=== PATIENT | female | born 1995 | race Caucasian/White ===

== ENCOUNTER 2020-01-05 09:31 | Inpatient (IN) ==
[2020-01-05] MEDS ORDERED: OXYTOCIN 30 UNITS/500 ML BAG IV PRN ×3 (13:35→22:25)
[2020-01-05 14:14] LABS: Hematocrit (blood only) 33.7 % (37-47); Hemoglobin 11.2 g/dL (12.0-16.0); Mean Corpuscular Hemoglobin 28.8 pg (25-34); Mean Corpuscular Volume 86.6 fL (80-100); RDW Coefficient of Variation 13.8 % (11.5-14.5); RDW Standard Deviation 43.6 fL (36.4-46.3); Red Blood Count 3.89 M/uL (4.2-5.4)
[2020-01-05 14:22] LABS: Mean Corpuscular Hgb Conc 33.2 g/dL (32-36); Platelet Count 100 K/uL (130-400)
[2020-01-05 14:23] LABS: Platelet Estimate Decreased (Normal)
--- NOTE | 2020-01-05 15:14 | Obstetrical Progress Note ---
Date of Service January 05, 2020 Assessment & Plan Admission and Anticipated Discharge Date Admission Date: January 05, 2020 Subjective Admit Note 24 F P2012 at 39.2 weeks admitted for IOL for Class 3 obesity. GBS negative. FHT Cat 1. Cervix 3/60/-3/vertex/intact/anterior. Will start Oxytocin for induction. Results & Data ([facility]) Vital Signs (Past 12 Hours) Vital Signs Temp Pulse Resp BP 01/05/20 14:16 36.8 C 20 01/05/20 13:33 96 H 134/87
[2020-01-05] MEDS: LACTATED RINGER'S 1,000 ML IV PRN ×2 (15:47→17:30)
[2020-01-05 16:08] LABS: INR 0.9 (0.9-1.1); Partial Thromboplastin Time 27.2 Seconds (21.0-31.0); Prothrombin Time 9.8 Seconds (9.0-12.0)
[2020-01-05 16:14] LABS: Alanine Aminotransferase 23 U/L (12-78); Albumin Level 2.1 gm/dl (3.4-5.0); Aspartate Aminotransferase 16 U/L (15-37); BUN Creatinine Ratio 20.3 (10-20); Bilirubin Direct < 0.1 mg/dl (0-0.2); Blood Urea Nitrogen 13 mg/dl (7-18); Calcium 8.6 mg/dl (8.5-10.1); Carbon Dioxide 20 mmol/L (21-32); Chloride 113 mmol/L (98-107); Creatinine Clr Calc Pharmacy 192.1 ml/min; Est GFR (Non-African American) 122.5; Glucose 78 mg/dl (70-99); Potassium 4.1 mmol/L (3.5-5.1); Sodium 139 mmol/L (136-145); Uric Acid 5.9 mg/dl (2.6-7.2)
[2020-01-05 16:17] LABS: Albumin Globulin Ratio 0.6 (0.9-2); Alkaline Phosphatase 227 U/L (45-117); Bilirubin,Total 0.2 mg/dl (0.2-1); Globulin 3.8 gm/dl (2.5-4.0); Total Protein 5.9 gm/dl (6.4-8.2)
--- NOTE | 2020-01-05 16:28 | Obstetrical Progress Note ---
Date of Service January 05, 2020 Assessment & Plan Admission and Anticipated Discharge Date Admission Date: January 05, 2020 Physical Exam Genitourinary: Manual OB Exam: + cervical dilation 4 cm, + cervical effacement 70%, + station -2 and + amniotic fluid clear OB Exam Monitor Tracing: + external FHT monitor used, + external uterine monitor used, + category I and + normal FHT variability AROM with Amni-hook clear fluid Results & Data ([facility]) Vital Signs (Past 12 Hours) Vital Signs Temp Pulse Resp BP 01/05/20 15:49 85 122/61 01/05/20 14:16 36.8 C 20 01/05/20 13:33 96 H 134/87
[2020-01-05] MEDS ORDERED: fentaNYL 2MCG/ML ROPIV 1.25MG/ML 100 ML BAG EPI ONE (16:43)
[2020-01-05] MEDS ORDERED: fentaNYL citrate 100 MCG/2 ML VIAL ONE (16:43)
[2020-01-05] MEDS ORDERED: ePHEDrine sulfate 50 MG/ML AMP ONE (16:43)
[2020-01-05] MEDS ORDERED: BUPIVACAINE 0.25% 30 ML VIAL ONE (16:43)
[2020-01-05] MEDS ORDERED: fentaNYL 2MCG/ML ROPIV 1.25MG/ML 100 ML BAG EPI PRN (17:09)
[2020-01-05] MEDS ORDERED: ePHEDrine sulfate 50 MG/ML AMP IV PRN (17:09)
[2020-01-05] MEDS ORDERED: NALOXONE HCL 0.4 MG/1 ML VIAL/CARP IV PRN (17:09)
[2020-01-05] MEDS ORDERED: DiphenhydrAMINE HCL 50 MG/ML VIAL IV PRN (17:09)
[2020-01-05] MEDS ORDERED: ONDANSETRON INJ 2 MG/ML 2 ML VIAL IV PRN (17:09)
[2020-01-05] MEDS ORDERED: NALOXONE HCL 1 MG in SODIUM CHLORIDE 0.9% 1000ML 1,000 ML IV PRN (17:09)
--- NOTE | 2020-01-05 17:11 | Anesthesiology Consultation ---
Date of Service January 05, 2020 Assessment & Plan Chart Review Chart Review: Patient NOT seen in Pre Admission Testing and Acceptable Risk for Labor Epidural Consults Requested none ASA ASA2 Proposed Anesthesia Anesthesia Type: Labor Epidural and CSE Risk / Benefits Reviewed With: PT / POA / Parent / Guardian, Accepts Plan and Informed Consent Obtained History Height/Weight Height: 5 ft 8 in Weight: 136.078 kg Allergies Allergy/AdvReac Type Severity Reaction Status Date / Time ziprasidone [From Geodon] Allergy Swelling Verified 08/27/19 23:10 of Lip/Tongue/Throat Medications Home Medications Medication Instructions Recorded Confirmed Last Taken Flintstones Gummies 2 tab PO DAILY 08/27/19 01/05/20 01/05/20 07:00 Active Medications Generic Name Dose Route Start Last Admin Trade Name Freq PRN Reason Stop Dose Admin Lactated Ringer's 1,000 mls @ 125 mls/hr 01/05/20 13:35 01/05/20 16:45 Lr IV 01/07/20 13:34 999 mls/hr .Q8H PRN Infusion L&D Protocol Protocol Oxytocin 30 units in 500 mls @ 4 mls/hr 01/05/20 15:07 01/05/20 16:20 Pitocin IV 01/07/20 15:06 0.24 units/hr .Q24H PRN 4 mls/hr Labor Induction/Augmentation Titration Protocol 0.24 UNITS/HR NPO Date Last Intake of Fluids: 01/05/20 Time Last Intake of Fluids: 15:00 Date Last Intake of Solids: 01/05/20 Time Last Intake of Solids: 12:00 Past Medical History Medical History ADHD No meds Bipolar 1 disorder No meds Depression No meds Hiatal hernia No pertinent past medical history OCD (obsessive compulsive disorder) SAB (spontaneous ) 2019 Exercise / Class Metabolic Activity II 4-5 Yardwork/Stairs/Walk up hill Past Surgical History Surgical History No pertinent past surgical history Past Anesthesia History No Hx of Anesthesia Complications and No Family Hx of Anesthesia Complications History of PONV No Hx of PONV and No Hx of Motion Sickness Social History Smoking Status: Current every day smoker tobacco type: cigarettes Smoking cigarettes per day: 20 cigarettes daily Do You Dip or Chew Tobacco: No Hx Alcohol Use: No Hx Substance Use: No substance use type: does not use Review of Systems no chest pain or sob Physical Exam Vital Signs Last Vital Signs Temp 36.8 C 01/05/20 14:16 Pulse 82 01/05/20 17:08 Resp 20 01/05/20 14:16 BP 139/64 01/05/20 16:50 Pulse Ox 97 01/05/20 17:08 ENMT Mouth: no TMJ abnormality Thyromental Distance: > or= 3.5 Finger Breadths Mallampati Class: II Neck normal visual inspection Respiratory normal respiratory effort Auscultation: lungs clear to auscultation bilaterally Cardiovascular Rate/Rhythm: regular rate and regular rhythm Musculoskeletal Spine: normal cervical ROM Neurologic moves all extremities Psychiatric Orientation: alert and oriented x 3 Testing Laboratory Results 01/05/20 13:47 01/05/20 15:45 PT 9.8 Seconds (9.0-12.0) 01/05/20 15:45 INR 0.9 (0.9-1.1) 01/05/20 15:45 APTT 27.2 Seconds (21.0-31.0) 01/05/20 15:45
--- NOTE | 2020-01-05 19:10 | Obstetrical Progress Note ---
Date of Service January 05, 2020 Assessment & Plan Admission and Anticipated Discharge Date Admission Date: January 05, 2020 Physical Exam Constitutional: WD/WN, vitals as above Genitourinary: OB Exam Abdomen: + regular contractions Manual OB Exam: + cervical dilation 4 cm, + cervical effacement 70% and + station -2 OB Exam Monitor Tracing: + external FHT monitor used, + category I and + normal FHT variability Results & Data ([facility]) Vital Signs (Past 12 Hours) Vital Signs Temp Pulse Resp BP Pulse Ox 01/05/20 19:03 79 96 01/05/20 18:58 79 98 01/05/20 18:53 84 97 01/05/20 18:52 72 133/69 01/05/20 18:48 81 97 01/05/20 18:46 20 01/05/20 18:43 82 98 01/05/20 18:38 86 98 01/05/20 18:36 73 125/58 L 01/05/20 18:33 82 98 01/05/20 18:29 20 01/05/20 18:28 70 97 01/05/20 18:23 72 97 01/05/20 18:21 69 119/68 01/05/20 18:18 73 97 01/05/20 18:14 20 01/05/20 18:13 77 98 01/05/20 18:08 78 97 01/05/20 18:07 76 108/52 L 01/05/20 18:03 74 97 01/05/20 17:58 80 98 01/05/20 17:53 74 97 01/05/20 17:52 81 120/62 01/05/20 17:48 79 97 01/05/20 17:46 20 01/05/20 17:43 87 97 01/05/20 17:38 86 97 01/05/20 17:34 78 134/56 L 01/05/20 17:33 83 98 01/05/20 17:28 84 123/60 97 01/05/20 17:25 85 135/69 01/05/20 17:24 86 132/66 01/05/20 17:23 89 99 01/05/20 17:22 81 148/67 H 01/05/20 17:18 77 98 01/05/20 17:16 103 H 159/103 H 01/05/20 17:13 97 H 98 07/02/20 17:08 82 97 01/05/20 17:03 79 98 01/05/20 16:50 36.7 C 77 20 139/64 01/05/20 15:49 85 122/61 01/05/20 14:16 36.8 C 20 01/05/20 13:33 96 H 134/87
--- NOTE | 2020-01-05 21:18 | Delivery Summary ---
Vaginal Delivery Summary Date of Service January 05, 2020 Vaginal Delivery Summary Delivery Note live female GARRET over intact perineum with nuchal cord x1 reduced at delivery. Delayed cord clamping with Apgars 8/9 weight pending. Cord blood obtained followed by spontaneous delivery of intact placenta. No tears. Final sponge and instrument count are correct. EBL 200 ml. Mom and baby stable.
[2020-01-05] MEDS ORDERED: bisacodyL 10 MG SUPP PR PRN (22:25)
[2020-01-05] MEDS ORDERED: DIPHTHERIA/TETANUS/PERTUSSIS 0.5 ML SYR/VIAL IM ONE (22:25)
[2020-01-05] MEDS ORDERED: BENZOCAINE 20% AER SPR 82.5 GM CAN EXT PRN (22:25)
[2020-01-05] MEDS ORDERED: SUPERCREAM 0.870% 15 GM JAR EXT PRN (22:25)
[2020-01-05] MEDS ORDERED: HYDROCORTISONE ACETATE 25 MG SUPP PR PRN (22:25)
[2020-01-05] MEDS ORDERED: ACETAMINOPHEN 325 MG TAB PO PRN (22:25)
[2020-01-05] MEDS: IBUPROFEN 600 MG TAB PO PRN (23:11)
--- NOTE | 2020-01-06 04:31 | Anesthesia Procedure Note ---
Date of Service January 06, 2020 Anesthesia Post Epidural Note Vital Signs Vital Signs: Temp Pulse Resp BP Pulse Ox 36.8 C 80 18 116/69 98 01/06/20 00:15 01/06/20 00:15 01/06/20 00:15 01/06/20 00:15 01/05/20 21:18 Pain Intensity Back: Pain Intensity: 2 Notes Mental Status: alert / awake / arousable and participated in evaluation Nausea / Vomiting: adequately controlled Pain: adequately controlled Airway Patency, RR, SpO2: stable & adequate BP & HR: stable & adequate Hydration State: stable & adequate Neuraxial Anesthesia: was administered and sensory block is resolving Anesthetic Complications: no major complications apparent and Pt Satisfied with anesthetic care Epidural: Removed without complications and With tip intact
[2020-01-06 06:32] LABS: Hematocrit (blood only) 31.5 % (37-47); Hemoglobin 10.4 g/dL (12.0-16.0); Mean Corpuscular Hemoglobin 28.8 pg (25-34); Mean Corpuscular Volume 87.3 fL (80-100); RDW Coefficient of Variation 13.8 % (11.5-14.5); RDW Standard Deviation 44.1 fL (36.4-46.3); Red Blood Count 3.61 M/uL (4.2-5.4); White Blood Count 8.74 K/uL (4.8-10.8)
[2020-01-06 06:42] LABS: Platelet Count 90 K/uL (130-400); Platelet Estimate Decreased (Normal)
--- NOTE | 2020-01-06 08:24 | Obstetrical Progress Note ---
Date of Service January 06, 2020 Assessment & Plan Admission and Anticipated Discharge Date Admission Date: January 05, 2020 Subjective Patient is seen and examined. She feels well, no complaints. Ambulating without dizziness Voiding without difficulty Tolerating regular diet with out N&V Bleeding is minimal No fever/ chills/ CP/ SOB/ N&V/ Leg pain Vital Signs Temp Pulse Pulse Resp BP BP Pulse Ox 01/06/20 04:25 36.9 C 78 18 112/58 L 01/06/20 00:15 36.8 C 80 18 116/69 01/05/20 23:10 36.4 C L 83 18 143/89 H 01/05/20 22:40 83 20 158/99 H 01/05/20 22:25 71 128/76 01/05/20 22:10 81 20 132/93 01/05/20 21:55 75 18 133/76 01/05/20 21:39 81 16 124/69 01/05/20 21:18 80 18 98 01/05/20 21:13 80 98 01/05/20 21:12 36.5 C 83 18 152/67 H 01/05/20 21:08 68 98 01/05/20 21:04 117 H 87 L 01/05/20 21:03 116 H 18 99 01/05/20 21:00 80 133/75 01/05/20 20:59 110 H 91 01/05/20 20:58 79 98 01/05/20 20:53 96 H 98 01/05/20 20:48 77 99 01/05/20 20:46 75 132/71 01/05/20 20:45 36.5 C 01/05/20 20:43 79 99 01/05/20 20:38 75 98 01/05/20 20:33 69 97 01/05/20 20:31 67 113/59 L 01/05/20 20:30 18 01/05/20 20:28 78 98 Lab Results 01/05/20 01/05/20 01/05/20 Range/Units 13:47 15:45 15:45 WBC 7.40 (4.8-10.8) K/uL RBC 3.89 L (4.2-5.4) M/uL Hgb 11.2 L (12.0-16.0) g/dL Hct 33.7 L (37-47) % MCV 86.6 (80-100) fL MCH 28.8 (25-34) pg MCHC 33.2 (32-36) g/dL RDW Std Deviation 43.6 (36.4-46.3) fL RDW Coeff of Angélica 13.8 (11.5-14.5) % Plt Count 100 L (130-400) K/uL Platelet Estimate Decreased L (Normal) PT 9.8 (9.0-12.0) Seconds INR 0.9 (0.9-1.1) APTT 27.2 (21.0-31.0) Seconds PTT Ratio 1.0 Sodium 139 (136-145) mmol/L Potassium 4.1 (3.5-5.1) mmol/L Chloride 113 H (98-107) mmol/L Carbon Dioxide 20 L (21-32) mmol/L Anion Gap 6.0 (3-11) BUN 13 (7-18) mg/dl Creatinine 0.65 (0.6-1.2) mg/dl Est Cr Clr Drug Dosing 192.1 ml/min Est GFR ( Amer) 142.0 Est GFR (Non-Af Amer) 122.5 BUN/Creatinine Ratio 20.3 H (10-20) Glucose 78 (70-99) mg/dl Uric Acid 5.9 (2.6-7.2) mg/dl Calcium 8.6 (8.5-10.1) mg/dl Total Bilirubin 0.2 (0.2-1) mg/dl Direct Bilirubin < 0.1 (0-0.2) mg/dl AST 16 (15-37) U/L ALT 23 (12-78) U/L Alkaline Phosphatase 227 H (45-117) U/L Lactate Dehydrogenase (84-246) U/L Total Protein 5.9 L (6.4-8.2) gm/dl Albumin 2.1 L (3.4-5.0) gm/dl Globulin 3.8 (2.5-4.0) gm/dl Albumin/Globulin Ratio 0.6 L (0.9-2) 01/05/20 01/06/20 Range/Units 15:45 06:04 WBC 8.74 (4.8-10.8) K/uL RBC 3.61 L (4.2-5.4) M/uL Hgb 10.4 L (12.0-16.0) g/dL Hct 31.5 L (37-47) % MCV 87.3 (80-100) fL MCH 28.8 (25-34) pg MCHC 33.0 (32-36) g/dL RDW Std Deviation 44.1 (36.4-46.3) fL RDW Coeff of Angélica 13.8 (11.5-14.5) % Plt Count 90 L (130-400) K/uL Platelet Estimate Decreased L (Normal) PT (9.0-12.0) Seconds INR (0.9-1.1) APTT (21.0-31.0) Seconds PTT Ratio Sodium (136-145) mmol/L Potassium (3.5-5.1) mmol/L Chloride (98-107) mmol/L Carbon Dioxide (21-32) mmol/L Anion Gap (3-11) BUN (7-18) mg/dl Creatinine (0.6-1.2) mg/dl Est Cr Clr Drug Dosing ml/min Est GFR ( Amer) Est GFR (Non-Af Amer) BUN/Creatinine Ratio (10-20) Glucose (70-99) mg/dl Uric Acid (2.6-7.2) mg/dl Calcium (8.5-10.1) mg/dl Total Bilirubin (0.2-1) mg/dl Direct Bilirubin (0-0.2) mg/dl AST (15-37) U/L ALT (12-78) U/L Alkaline Phosphatase (45-117) U/L Lactate Dehydrogenase 148 (84-246) U/L Total Protein (6.4-8.2) gm/dl Albumin (3.4-5.0) gm/dl Globulin (2.5-4.0) gm/dl Albumin/Globulin Ratio (0.9-2) PE: General: Alert, orientedx3, NAD Abd: soft, NT, fundus firm, below Umbilicus Perineum intact, Lochia rubra minimal Ext; NT, no edema AP: 24 yo s/p , ppd# 1 VSS Afebrile doing well Continue routine care All questions were answered D/C home tomorrow Results & Data ([facility]) Vital Signs (Past 12 Hours) Vital Signs Temp Pulse Pulse Resp BP BP Pulse Ox 01/06/20 04:25 36.9 C 78 18 112/58 L 01/06/20 00:15 36.8 C 80 18 116/69 01/05/20 23:10 36.4 C L 83 18 143/89 H 01/05/20 22:40 83 20 158/99 H 01/05/20 22:25 71 128/76 01/05/20 22:10 81 20 132/93 01/05/20 21:55 75 18 133/76 01/05/20 21:39 81 16 124/69 01/05/20 21:18 80 18 98 01/05/20 21:13 80 98 01/05/20 21:12 36.5 C 83 18 152/67 H 01/05/20 21:08 68 98 01/05/20 21:04 117 H 87 L 01/05/20 21:03 116 H 18 99 01/05/20 21:00 80 133/75 01/05/20 20:59 110 H 91 01/05/20 20:58 79 98 01/05/20 20:53 96 H 98 01/05/20 20:48 77 99 01/05/20 20:46 75 132/71 01/05/20 20:45 36.5 C 01/05/20 20:43 79 99 01/05/20 20:38 75 98 01/05/20 20:33 69 97 01/05/20 20:31 67 113/59 L 01/05/20 20:30 18 01/05/20 20:28 78 98
[2020-01-06] MEDS ORDERED: OR MISCELLANEOUS MED ONE (08:48)
[2020-01-06] MEDS ORDERED: [UNRECOGNIZED DRUG - OTHER] PO SCH (09:00)
[2020-01-06] MEDS: FERROUS SULFATE 325 MG TAB PO SCH (11:27)
[2020-01-06] MEDS: DOCUSATE SODIUM 100 MG CAP PO SCH ×2 (11:27→21:25)
[2020-01-06] MEDS: PRENATAL VITAMIN 1 TAB PO SCH (11:27)
[2020-01-06] MEDS: IBUPROFEN 600 MG TAB PO PRN (16:20)
[2020-01-06 17:54] VITALS: O2SAT 96
[2020-01-06] MEDS ORDERED: bisacodyL 5 MG TABEC PO SCH (20:00)
[2020-01-07 07:09] LABS: Hematocrit (blood only) 31.2 % (37-47); Mean Corpuscular Hgb Conc 32.1 g/dL (32-36); Mean Corpuscular Volume 90.4 fL (80-100); Platelet Count 90 K/uL (130-400); RDW Coefficient of Variation 14.1 % (11.5-14.5); RDW Standard Deviation 46.1 fL (36.4-46.3); Red Blood Count 3.45 M/uL (4.2-5.4); White Blood Count 5.31 K/uL (4.8-10.8)
[2020-01-07 07:10] LABS: Basophils # (auto) 0.01 K/uL (0-0.2); Basophils % (auto) 0.2 %; Eosinophils # (auto) 0.15 K/uL (0-0.5); Eosinophils % (auto) 2.8 %; Giant Platelets 1+; Immature Granulocytes # (auto) 0.01 K/uL (0.00-0.02); Immature Granulocytes % (auto) 0.2 %; Lymphocytes # (auto) 1.68 K/uL (1.2-3.4); Lymphocytes % (auto) 31.6 %; Monocytes # (auto) 0.47 K/uL (0.11-0.59); Monocytes % (auto) 8.9 %; Neutrophils # (auto) 2.99 K/uL (1.4-6.5); Neutrophils % (auto) 56.3 %; Platelet Estimate Decreased (Normal)
[2020-01-07] MEDS: PRENATAL VITAMIN 1 TAB PO SCH (08:56)
[2020-01-07] MEDS: FERROUS SULFATE 325 MG TAB PO SCH (08:56)
[2020-01-07] MEDS: DOCUSATE SODIUM 100 MG CAP PO SCH (08:56)
[2020-01-07 09:06] VITALS: BP 134/82; PULSE 80; TEMP 98.1
--- NOTE | 2020-01-07 10:47 | Obstetrical Progress Note ---
Date of Service January 07, 2020 Assessment & Plan (1) Normal course: PPD #2 pt doing well No complaints d/c home with instructions Subjective Ambulation: ambulating normally Voiding: no voiding problems Passing Gas:: Yes Diet Tolerance:: regular diet Lochia:: Small Feeding Type:: breast feeding Review of Systems All systems reviewed & are unremarkable except as noted in HPI & below Physical Exam Constitutional WD/WN, vitals as above well developed and well nourished Eyes PERRL, conjunctivae normal, anicteric sclerae Neck trachea midline, no thyromegaly Respiratory normal respiratory effort, lungs clear to auscultation Auscultation: no crackles, no rales and no wheezes Cardiovascular RRR, no murmur, no edema Gastrointestinal (Abdomen) normal bowel sounds, soft, nontender, no hepatosplenomegaly Uterus is below umbilicus Musculoskeletal no cyanosis or clubbing, extremities motor strength 5/5 Skin no rashes, warm and dry Neurologic patellar DTR's 2+ bilat, sensation intact Psychiatric A+Ox3, euthymic affect Genitourinary normal external appearance Results & Data Vital Signs (Past 12 Hours) Vital Signs Temp Pulse Pulse Resp BP 01/07/20 07:40 36.7 C 80 22 134/82 01/07/20 00:30 36.4 C L 79 18 100/63
[2020-01-07] MEDS ORDERED: MEASLES, MUMPS & RUBELLA VIRUS VIAL SQ ONE (13:11)
== END 2020-01-07 14:20 | disposition home or self-care (01) | DRG 807 ==
LOC: 4S1 13:20 → 4S2 23:43